=== PATIENT | female | born 1985 | race African-American/Black ===

== ENCOUNTER 2022-02-05 16:40 | Emergency (ER) | payer BC, SELFPAY ==
[2022-02-05 17:01] VITALS: BP 127/81; PULSE 64; RESP 16; TEMP 36.4; O2SAT 100
--- NOTE | 2022-02-05 17:05 | ECG_ITS ---
Measurements Intervals [place] Rate: 59 P: -1 LA: 134 QRS: 55 QRSD: 73 T: 42 QT: 393 QTc: 391 Interpretive Statements SINUS BRADYCARDIA NONSPECIFIC T-WAVE ABNORMALITY BORDERLINE ECG NO PREVIOUS ECG AVAILABLE FOR COMPARISON Electronically Signed On 02-05-2022 17:59:59 CDT by Troy Mckeon M.D.
--- NOTE | 2022-02-05 17:17 | ED.DIZZY ---
HPI - Dizziness General Chief Complaint: Dizziness Stated Complaint: DIZZINESS Time Seen by Provider: 02/05/22 17:17 History of Present Illness HPI Narrative: Patient is a 36-year-old female with a history of generalized anxiety disorder with panic attacks here for evaluation of intermittent episodes of lightheadedness over the past week. Patient states that she is felt lightheaded about 3 times over the past week, and each time the lightheadedness has been followed by a panic attack. She has been seated each time the lightheadedness comes on, denies provoking factors. Does have a history of panic attacks, but denies history of similar presentation. States that lightheadedness is only somewhat relieved after taking her usual Xanax dose. Today, she states that the lightheadedness was associated with some nausea, which is new for her. She was advised by her primary and her counselor to come the emergency department. Does note that she has had a lot of increased stress recently. Additionally states she has been urinating more frequently, but denies dysuria or hematuria. Denies chest pain, fevers, recent illness, abdominal pain, vomiting, rashes, ear pain, congestion, calf swelling, recent surgeries or immobilization. Related Data Allergies Allergy/AdvReac Type Severity Reaction Status Date / Time adhesive tape Allergy Unknown HIVES Verified 02/05/22 17:21 Penicillins Allergy Unknown HIVES Verified 02/05/22 17:21 Beta-Blockers AdvReac Unknown CHEST Verified 02/05/22 17:21 (Beta-Adrenergic Bloc HEAVINESS Review of Systems Review of Systems: Gen.: Reports lightheadedness. Denies fevers or chills Eyes: Denies eye pain or visual change ENT: Denies congestion Respiratory: Denies shortness of breath or cough CV: Denies chest pain or palpitations GI: Reports nausea. Denies abdominal pain, emesis or diarrhea denies burning, urgency, frequency or hematuria Musculoskeletal: Denies back pain or muscle pain Neuro: Denies numbness, tingling, weakness or focal weakness Skin: Denies rash Except as documented, all other systems reviewed and negative Exam Narrative: APPEARANCE: Well appearing, no pain in distress, well-nourished. Head: normocephalic and atraumatic. EYES: PERRLA/EOMI, conjunctivae clear NOSE: No nasal drainage EARS: External ear normal in appearance THROAT: Oropharynx is clear. Mucous membranes are moist. NECK: Supple. No adenopathy, no masses. RESPIRATORY: Airway patent, respirations nonlabored. Clear to auscultation bilaterally, no rales, rhonchi, wheezing. CARDIOVASCULAR: Regular rate and rhythm without murmurs, rubs, or gallops. ABDOMINAL: Normoactive bowel sounds. Soft, nontender, nondistended. No rebound tenderness or guarding. MUSCULOSKELETAL: Extremities are warm and well-perfused. Moves all extremities well. No edema. NEURO: CN II-XII intact. Normal speech. No focal neurologic deficits. SKIN: Skin is warm and dry. No rashes. PSYCHIATRIC: Normal affect/mood. Course Vital Signs Vital signs: Vital Signs Temperature 97.6 F 02/05/22 17:01 Pulse Rate 64 02/05/22 17:01 Respiratory Rate 16 02/05/22 17:01 Blood Pressure 127/81 02/05/22 17:01 Pulse Oximetry 100 02/05/22 17:01 Oxygen Delivery Room Air 02/05/22 17:01 Temperature 97.6 F 02/05/22 17:01 Pulse Rate 74 02/05/22 19:51 Respiratory Rate 15 02/05/22 19:51 Blood Pressure 131/91 H 02/05/22 19:51 Pulse Oximetry 100 02/05/22 19:51 Oxygen Delivery Room Air 02/05/22 17:01 MDM - Dizziness MDM Narrative Medical decision making narrative: 36-year-old female here for evaluation of intermittent episodes of dizziness and anxiety over the past 2 weeks. Vital signs normal, exam unrevealing. TMs clear bilaterally, no nystagmus, HIINTS exam not performed as patient is not currently symptomatic. Labs and UA within normal limits, EKG and troponin nonischemic. Presentation not consistent with with BPPV/M?ni?re's as patient was
[2022-02-05 17:27] LABS: Basophils Percent Auto 0.9 % (0.2-1.2); Eosinophils Absolute Auto 0.1 K/mm3 (0-0.3); Hematocrit 35.8 % (37.0-47.0); Hemoglobin 11.7 g/dL (12.0-15.0); Lymphocytes Absolute Auto 1.91 K/mm3 (0.9-3.2); Lymphocytes Percent Auto 43.7 % (18.3-44.2); Mean Corpuscular HGB Conc 32.7 g/dl (32-36); Mean Corpuscular Hemoglobin 29.8 pg (26-34); Mean Corpuscular Volume 91.1 fl (80-100); Mean Platelet Volume 9.7 fl (7.4-10.4); Monocytes Absolute Auto 0.3 K/mm3 (0.1-0.6); Monocytes Percent Auto 7.1 % (2.6-8.5); Neutrophils Percent Auto 45.3 % (45.5-73.1); Platelet Count Result 299 k/mm3 (150-375); Red Blood Count 3.93 M/mm3 (4.2-5.4); Red Cell Distribution Width 11.9 % (11.5-14.5); White Blood Count 4.4 K/mm3 (4.5-10.0)
[2022-02-05 17:28] LABS: Appearance Urine Clear (Clear); Bilirubin Urine Negative (Negative); Blood Urine Negative (Negative); Color Urine Yellow (Yellow); Glucose Urine UA Negative (Negative); Ketones Urine Negative (Negative); Leukocyte Esterase Ur Negative LEU/UL (Negative); Nitrate Urine Negative (Negative); Protein Urine Negative (Negative); Urobilinogen Urine 0.2 mg/dL (<2.0)
[2022-02-05 17:34] LABS: Add Urine Microscopic? NO
[2022-02-05 17:37] VITALS: BP 121/84; PULSE 65; RESP 17; O2SAT 99
[2022-02-05 17:43] LABS: Alanine Aminotransferase 19 U/L (6-35); Albumin Level 4.9 g/dL (3.5-5.1); Alkaline Phosphatase 50 U/L (38-126); Anion Gap 8 mmol/L (8-16); Aspartate Amino Transferase 37 U/L (14-36); Bilirubin,Total 0.8 mg/dL (0.2-1.3); Blood Urea Nitrogen 10 mg/dL (7-17); Calcium 9.3 mg/dL (8.4-10.2); Carbon Dioxide 29 mmol/L (22-30); Chloride 102 mmol/L (98-107); Estimated CRCL calculation 84 ml/min; Estimated Glomerular Filt Rate > 60; Glucose 110 mg/dL (65-110); Potassium 3.6 mmol/L (3.4-5.0); Sodium 139 mmol/L (137-145)
[2022-02-05 18:56] LABS: Troponin I < 0.012 ng/mL (0.000-0.034)
[2022-02-05 19:51] VITALS: BP 131/91; PULSE 74; RESP 15; O2SAT 100
== END 2022-02-05 19:52 | disposition home or self-care (01) ==
PROVIDERS: Physician Assistant; Emergency Provider Emergency Medicine
DX: R42 Dizziness and giddiness (principal); F41.1 Generalized anxiety disorder; R00.1 Bradycardia, unspecified; R94.31 Abnormal electrocardiogram [ECG] [EKG]
CPT/HCPCS: 36415; 80053; 81003; 81025; 84484; 85025; 93005; 99284

== ENCOUNTER → 2023-01-06 08:19 | Outpatient (CLI) | payer BC, SELFPAY ==
--- NOTE | ~2023-01-06 | US_ITS ---
EXAMINATION: US breast LT limited HISTORY: Palpable lump of the lower inner quadrant of the left breast TECHNIQUE: Limited left breast ultrasound was performed. FINDINGS: No suspicious cystic or solid mass is identified in the area of the palpable abnormality. IMPRESSION: No specific sonographic correlate is identified for the reported palpable abnormality of concern. Fur ther evaluation at this time should be based on clinical assessment. Continued follow-up physical exa mination is recommended. BI-RADS Category 1: Negative Reviewed, dictated and finalized at location A. IMPRESSION: No specific sonographic correlate is identified for the reported palpable abnor mality of concern. Further evaluation at this time should be based on clinical assessment. Continued follow-up physical examination is recommended. BI-RADS Category 1: Negative
== END ==
PROVIDERS: PCP Nurse Practitioner Family; Visit Provider Registered Nurse
DX: N63.24 Unspecified lump in the left breast, lower inner quadrant (principal)
CPT/HCPCS: 76642

== ENCOUNTER 2023-04-06 11:58 | Emergency (ER) | payer BC, SELFPAY ==
[2023-04-06 11:58] VITALS: BP 129/83; PULSE 70; RESP 15; TEMP 36.9; O2SAT 98
[2023-04-06] MEDS: KETOROLAC 30 MG/ML VIAL (*BKC) IV PUSH (13:04)
[2023-04-06] MEDS: SODIUM CHLORIDE 0.9% IV 1,000 ML 999 ML IV CONT (13:04)
[2023-04-06] MEDS: diazePAM INJ (*CRX) 10 MG/2 ML SYRINGE 5 MG IV PUSH (13:04)
--- NOTE | 2023-04-06 14:03 | ED.BACK ---
HPI - Back Pain/Injury General Chief Complaint: Back Pain/Injury Stated Complaint: back pain Time Seen by Provider: 04/06/23 12:16 History of Present Illness HPI Narrative: Patient is a 37-year-old female who presents ER with pain in her right lower extremity. Patient has history of herniated disc in her back. Is diagnosed in September of this year. She has been doing physical therapy though she had also been offered surgery. Reports she had an unremarkable weekend where she had done some walking and bike riding which is typical for her. She woke up this morning at 5:30 AM with pain in her right buttock/lateral thigh. She was able to ambulate to the bathroom and back with her pain increasing. It suddenly became sharp and debilitating and she cannot stand without having severe pain. She continues to have strength. She has increased tingling to the right lower extremity which has been worsening over the last month as well. She has no saddle anesthesia. No difficulty with urination/defecation. She had no pop in her back and no pain in her back. Patient is most comfortable laying on her side with her knees and hips flexed. Related Data Home Medications Medication Instructions Recorded Confirmed cetirizine 10 mg capsule (Zyrtec) 10 mg PO DAILY PRN 03/27/22 trazodone 50 mg tablet 50 mg PO QHS PRN 03/27/22 duloxetine 60 mg capsule,delayed 60 mg PO DAILY 12/15/22 release lorazepam 0.5 mg tablet (Ativan) 0.5 mg PO DAILY PRN 12/15/22 methylphenidate HCl 5 mg tablet 5 mg PO BID 12/15/22 (Ritalin) levonorgestrel 17.5 mcg/24 hrs 1 device intrauterine ONCE 03/18/23 (5yrs) 19.5mg intrauterine device (Kyleena) Allergies Allergy/AdvReac Type Severity Reaction Status Date / Time adhesive tape Allergy Unknown HIVES Verified 04/06/23 13:05 Penicillins Allergy Unknown HIVES Verified 04/06/23 13:05 Beta-Blockers AdvReac Unknown CHEST Verified 04/06/23 13:05 (Beta-Adrenergic Bloc HEAVINESS Review of Systems Review of Systems: All systems reviewed & are unremarkable except as noted in HPI and below Constitutional: Constitutional: Denies chills, Denies fatigue and Denies fever(s) Musculoskeletal: Musculoskeletal: Denies back pain, Denies arthralgias and Denies joint swelling Comments: RLE pain Neurologic: Denies focal weakness and Reports numbness PMFSH Past Medical History Medical History Anxiety Asthma Back disorder Hypertension Irritable bowel syndrome (IBS) Seasonal allergies Surgical History Surgical History History of cervical polypectomy 2018 History of hysteroscopy 2018 History of nasal surgery 2008 nasal cavity surgery Family History Family History Mother Hypertension Grandparent Hypertension Depression Heart disease Cerebrovascular accident Social History Social History (Updated 03/18/23 @ 11:40 by Alona De La Cruz MA) Smoking status: Never smoker Alcohol intake: never Substance use: never Lack of Transportation: No Lack of Food: Never True Current Housing: I Have Housing Concerned About Future Housing: No Difficulty Paying Gas/Electric Bills: No Difficulty Paying for Meds: No Currently Unemployed: No Education: Master's Degree or Higher Difficulty w/ Childcare or Family Care: No Living arrangements: with family Occupation/Education: occupation Gender identity (if verbalized by the patient): Female Sexual Orientation (if Verbalized by the Patient): Straight or Heterosexual Spiritual care concerns: No Exam Narrative: GENERAL: Well-appearing, well-nourished, and in no acute distress. HEAD: Normocephalic, atraumatic. ENT: Mucous membranes moist. CHEST: Clear to auscultation. No respiratory distress. HEART: Regular rate and rhythm. Normal peripheral pulses.
[2023-04-06] MEDS: MORPHINE SULFATE (*CRX) 4 MG/ML INJ IV PUSH (15:24)
[2023-04-06 15:29] VITALS: BP 126/75; PULSE 73; O2SAT 100
--- NOTE | 2023-04-06 15:57 | PC.NURSE ---
Attempted to walk patient, but patient refusing until after 4 pm. will try to walk patient after 4 pm.
[2023-04-06 16:59] VITALS: BP 126/75; PULSE 72; O2SAT 100
== END 2023-04-06 17:00 | disposition home or self-care (01) ==
PROVIDERS: Emergency Provider Emergency Medicine; PCP Nurse Practitioner Family
DX: M54.30 Sciatica, unspecified side (principal); I10 Essential (primary) hypertension; J45.909 Unspecified asthma, uncomplicated
CPT/HCPCS: 96361; 96374; 96375; 99284; J1885; J2270; J3360; J7030

== ENCOUNTER → 2023-04-14 09:56 | Outpatient (CLI) | payer BC, SELFPAY ==
--- NOTE | ~2023-04-14 | MR_ITS ---
EXAMINATION: MR lumbar spine wo con DATE: 04/14/2023 10:58 INDICATION: Low back pain. Lumbar disc herniation. TECHNIQUE: Magnetic resonance imaging (MRI) of the lumbar spine was performed without intravenous con trast. Sequences included sagittal T2-weighted FSE, sagittal T2-weighted FS FSE, sagittal T1-weighted FSE, and axial T2-weighted FSE. COMPARISON: None FINDINGS: There is 5 degrees levocurvature of lumbar spine. There is 3 mm retrolisthesis of L4 on L5 and L5 on S1. There is mild chronic anterior wedging of L5 vertebral body. There is mildly decreased disc height at L4-L5 and moderately decreased disc height at L5-S1. The distal spinal cord signal int ensity is normal. The conus medullaris is at L2. The following disc levels are specifically discussed : L1-L2: The disc does not extend beyond the endplate margin. There is mild left facet joint osteoarthr itis. There is no neural foraminal stenosis. There is no central canal stenosis. L2-L3: The disc does not extend beyond the endplate margin. There is mild bilateral facet joint osteo arthritis. There is no neural foraminal stenosis. There is no central canal stenosis. L3-L4: The disc does not extend beyond the endplate margin. There is moderate bilateral facet joint o steoarthritis. There is no neural foraminal stenosis. There is no central canal stenosis. L4-L5: The disc is bulging and has an annular fissure. There is mild bilateral facet joint osteoarthr itis. There is mild bilateral neural foraminal stenosis. There is mild central canal stenosis. L5-S1: The disc is bulging with superimposed right subarticular zone extrusion with mass effect on ri ght S1 nerve root in right lateral recess. There is moderate bilateral facet joint osteoarthritis. Th ere is moderate bilateral neural foraminal stenosis. There is mild central canal stenosis. There is s evere stenosis of right lateral recess. IMPRESSION: 1. Moderate lower lumbar spondylosis. Of note, an extrusion at L5-S1 exerts mass effect on right S1 n erve root. Reviewed, dictated and finalized at location A. IMPRESSION: 1. Moderate lower lumbar spondylosis. Of note, an extrusion at L5-S1 exerts mas s effect on right S1 nerve root.
--- NOTE | ~2023-04-14 | MR_ITS ---
EXAMINATION: MR cervical spine wo con DATE: 04/14/2023 10:58 INDICATION: Numbness and tingling to the right arm and leg TECHNIQUE: Magnetic resonance imaging (MRI) of the cervical spine was performed without intravenous c ontrast. Sequences included sagittal T2-weighted FSE, sagittal T2-weighted FS FSE, sagittal T1-weight ed FSE, axial MERGE and axial T2-weighted FSE. COMPARISON: None FINDINGS: Straightening of the lordosis in the mid to upper cervical spine. No spondylolisthesis. Vertebral cathie dy heights are normal. Bone marrow signal intensity is normal. Mild disc desiccation and minimal to mild disc height loss at C2-C3 through C5-C6. Cord signal intensity is normal. Visualized cervical so ft tissues are unremarkable. The following disc levels are specifically discussed: C2-C3: The disc does not extend beyond the endplate margin. There is no uncovertebral joint osteoarth ritis. There is mild bilateral facet joint osteoarthritis. There is no neural foraminal stenosis. The re is no central canal stenosis. C3-C4: The disc does not extend beyond the endplate margin. There is mild right uncovertebral joint o steoarthritis. There is mild right facet joint osteoarthritis. There is no neural foraminal stenosis. There is no central canal stenosis. C4-C5: The disc does not extend beyond the endplate margin. There is mild left uncovertebral joint os teoarthritis. There is mild bilateral facet joint osteoarthritis. There is no neural foraminal stenos is. There is no central canal stenosis. C5-C6: Disc is mildly bulging. There is mild bilateral uncovertebral joint osteoarthritis. There is m ild bilateral facet joint osteoarthritis. There is mild right neural foraminal stenosis. There is mil d central canal stenosis. C6-C7: The disc does not extend beyond the endplate margin. There is no uncovertebral joint osteoarth ritis. There is mild left facet joint osteoarthritis. There is no neural foraminal stenosis. There is no central canal stenosis. C7-T1: The disc does not extend beyond the endplate margin. There is mild bilateral uncovertebral ebonie nt osteoarthritis. There is mild bilateral facet joint osteoarthritis. There is no neural foraminal s tenosis. There is no central canal stenosis. IMPRESSION: 1. Minimal to mild cervical spondylosis. Reviewed, dictated and finalized at location B.
== END ==
PROVIDERS: PCP Nurse Practitioner Family; Visit Provider Nurse Practitioner Family
DX: M51.06 Intervertebral disc disorders with myelopathy, lumbar region (principal); R20.0 Anesthesia of skin; R20.2 Paresthesia of skin; M47.892 Other spondylosis, cervical region; M47.896 Other spondylosis, lumbar region; M51.27 Other intervertebral disc displacement, lumbosacral region
CPT/HCPCS: 72141; 72148

== ENCOUNTER → 2023-10-05 09:10 | Outpatient (CLI) | payer BC, SELFPAY ==
--- NOTE | ~2023-10-05 | MR_ITS ---
MRI of the lumbar spine Clinical History: Postoperative pain Technique: Axial T2-weighted images, and sagittal T1-weighted, T2-weighted, and and T2 fat-sat images were acquired. Following intravenous administration of 16 cc MultiHance gadolinium, T1-weighted fat- sat imaging was performed in the axial and sagittal planes. COMPARISON: 04/14/2023 Findings: No fracture and 5. There is 5 mm retrolisthesis of L5 over S1. No suspicious bone marrow si gnal abnormality seen. At L1-L2, L2-L3, L3-L4, there is no disc bulge or herniation. There is mild to moderate facet arthrop athy these levels. No spinal canal stenosis or neural foraminal narrowing at these levels. At L4-L5, there is diffuse disc bulge, especially at the central to left paracentral/left foraminal r egion, with mild to moderate facet arthropathy. No central canal stenosis. There is minimal left neur al foraminal narrowing. Right neural foramen preserved. At L5-S1, there is moderate degenerative disc narrowing. There is disc bulge/protrusion, most promine nt at the right paracentral to right foraminal region. No central canal stenosis. There is moderate t o severe bilateral neural foraminal narrowing. Paravertebral soft tissues are unremarkable. No abnormal postcontrast enhancement identified. Impression: Moderate degenerative spondylosis at L5-S1. Mild degenerative spondylosis at L4-L5. Reviewed, dictated and finalized at [facility]. [employer] Impression: Moderate degenerative spondylosis at L5-S1. Mild degenerative spondylosis at L4 -L5.
== END ==
PROVIDERS: PCP Nurse Practitioner Family
DX: G89.18 Other acute postprocedural pain (principal); M47.897 Other spondylosis, lumbosacral region
CPT/HCPCS: 72158; A9577